=== PATIENT | female | born 1970 | race Caucasian/White ===

== ENCOUNTER 2016-09-08 12:15 | Day surgery (SDC) | payer BC ==
[2016-09-01 13:54] LABS: HEMATOCRIT 39.1 % (36.0-48.0); HEMOGLOBIN 13.7 g/dL (12.0-16.0)
--- NOTE | ~2016-09-08 | OP ---
Record Of Operation [facility] [address] [place]. [address] NAME: HENRIETTA HOLLAND : 68 STATUS : [facility]#: [id number] AGE: 46 ADM/REG DATE : 09/08/16 MR#: [id number] REPORT SERV DATE: 09/08/16 DICTATED BY: FELIX PARKER DATE: 09/08/16 REPORT STATUS : Draft TRANSCRIBED BY: MODL DATE: 09/08/16 DATE OF PROCEDURE: 09/08/2016 PREOPERATIVE DIAGNOSES: 1. Osteoarthritis medial compartment, left knee. 2. Torn medial meniscus, left knee. POSTOPERATIVE DIAGNOSES: 1. Osteoarthritis medial compartment, left knee. 2. Torn medial meniscus, left knee. PROCEDURE: 1. Arthroscopy of the left knee. 2. Partial medial meniscectomy. 3. Debridement of medial femoral condyle. SURGEON: Felix Parker M.D. [employer]: Isa[employer]. COMPLICATIONS: None. ANESTHESIA: General. ESTIMATED BLOOD LOSS: Minimal. DESCRIPTION OF THE PROCEDURE: The patient was supine on the operating table, induced into general anesthesia. Had her left knee prepped with Hibiclens and ChloraPrep, sterilely draped, exsanguinated with an Cj wrap. Tourniquet applied to 350 mmHg. Lateral, medial, parapatellar tendon portals were established. The knee was inspected. The patellofemoral joint was smooth and intact, normal cartilage surfaces, a little bit of fat pad, was removed with a shaver. The lateral side of the joint was also smooth and intact with normal lateral meniscus. The ACL was also intact. Medial-side of the joint, there was some degeneration with 1 small grade 4 lesion at the far medial femoral condyle, far medial portion of it, about 4 mm or 5 mm around. There was some intact good cartilage over a lot of the weightbearing surface of the medial femoral condyle and some just generalized grade 1 to 2 superficial changes on the tibial plateau. There was a complex tear of the posterior portion of the medial meniscus necessitating excision to the periphery from the posterior horn to the posteromedial corner then it was contoured back to normal meniscus. The anteromedial medial corner of the knee was then suctioned of excess fluid and debris and the portals closed with interrupted 4-0 Ethilon, the knee instilled with 20 mL 0.5% plain ropivacaine and 10 mg Duramorph, and a compressive wrap applied. Tourniquet released. The patient taken to recovery in satisfactory condition. Record Of Operation [address] [place]. [address] NAME: HENRIETTA HOLLAND : 68 STATUS : [facility] PAT#: [id number] AGE: 46 ADM/REG DATE : 09/08/16 MR#: [id number] REPORT SERV DATE: 09/08/16 DICTATED BY: FELIX PARKER DATE: 09/08/16 REPORT STATUS : Draft TRANSCRIBED BY: GONZALEZ DATE: 09/08/16 MR/GONZALEZ Felix Parker M.D. / [id number] CC: Ingrid Morse M.D.
[~2016-09-08 12:15] MED LIST: ADVIL PM1 CAP PO; ADVIL PO; ASAB PO; B12100T PO; CELEXA20 PO; FISH OIL1200 MG PO; VITAMIN D31000 UNIT PO
== END 2016-09-08 18:03 | disposition home or self-care (01) ==
LOC: SDC 12:15
PROVIDERS: Orthopaedic Surgery
PROC: 0SBD4ZZ Excision of Left Knee Joint, Percutaneous Endoscopic Approach (ICD-10-PCS; principal; 2016-09-08 13:45)
DX: S83.212A Bucket-handle tear of medial meniscus, current injury, left knee, initial encounter (principal); F32.9 Major depressive disorder, single episode, unspecified; Z79.82 Long term (current) use of aspirin; Z79.899 Other long term (current) drug therapy; Z91.013 Allergy to seafood
CPT/HCPCS: 84703; 85014; 85018; 88304; A9270-GY; J0690; J1170; J2250; J2274; J2405; J3010